=== PATIENT | male | born 1995 | race African-American/Black ===

== ENCOUNTER 2017-07-29 23:26 | Emergency (ER) | payer SELFPAY ==
[~2017-07-29] VITALS: Ht 160 cm; Wt 65.8 kg
[2017-07-29 23:32] VITALS: BP 114/78
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
[2017-07-30] MEDS ORDERED: IBUPROFEN600 MG ORAL (00:08)
[2017-07-30 00:20] VITALS: BP 114/78
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
== END 2017-07-30 00:15 ==
LOC: EMR 23:55
DX: S62.629A Displaced fracture of middle phalanx of unspecified finger, initial encounter for closed fracture (principal); Y35.93XA Legal intervention, means unspecified, suspect injured, initial encounter
CPT/HCPCS: 29130; 99283